=== PATIENT | female | born 1965 | race African-American/Black ===

== ENCOUNTER 2017-01-11 14:03 | Emergency (ER) | payer MEDICAID, OTHER ==
[~2017-01-11] VITALS: Ht 165.1 cm; Wt 75.0 kg
[2017-01-11] MEDS ORDERED: KETOROLAC 60MG/2ML VIAL IM ONE (14:45)
[2017-01-11 18:42] VITALS: BP 165/108
== END 2017-01-11 18:44 | disposition home or self-care (01) ==
LOC: ER 14:03
DX: S40.012A Contusion of left shoulder, initial encounter (principal); S70.02XA Contusion of left hip, initial encounter; S80.12XA Contusion of left lower leg, initial encounter; M54.5 Low back pain; M54.6 Pain in thoracic spine; I10 Essential (primary) hypertension; F17.200 Nicotine dependence, unspecified, uncomplicated; V43.52XA Car driver injured in collision with other type car in traffic accident, initial encounter; Y93.89 Activity, other specified; Y92.410 Unspecified street and highway as the place of occurrence of the external cause; Y99.8 Other external cause status
CPT/HCPCS: 73030; 73060; 73502; 73590; 96372; 99284; J1885